=== PATIENT | female | born 1955 | race Caucasian/White ===

== ENCOUNTER 2023-05-29 19:45 | Emergency (ER) | payer OTHER ==
[2023-05-29] MEDS ORDERED: MORPHINE 2 MG/ML SYR ONE (20:06)
[2023-05-29] MEDS ORDERED: NA CHLORIDE 0.9% 500 ML ONE (20:07)
[2023-05-29] MEDS ORDERED: MORPHINE 4 MG/ML SYR ONE (20:07)
[2023-05-29] MEDS ORDERED: ONDANSETRON 4 MG/2 ML VIAL ONE (20:08)
[2023-05-29 20:12] LABS: Absolute Lymphocytes (CBC) 1.9 K/uL (0.7-4.9); Hematocrit 41.8 % (36.0-45.0); Lymphocytes % 34.9 % (15.3-44.8); MCV 91.9 fL (80-100); RBC Red Blood Cell Count 4.55 M/uL (3.86-4.86)
[2023-05-29 20:29] LABS: Potassium 3.1 mEq/L (3.5-5.1)
[2023-05-29] MEDS ORDERED: POTASSIUM 25 MEQ EFFERV TAB ONE (20:48)
--- NOTE | 2023-05-29 20:55 | RAD REPORT ---
EXAM DESCRIPTION: RAD - Ankle Left 3 View -05/29/2023 8:36 pm CLINICAL HISTORY: Left ankle pain status post injury FINDINGS: Oblique markedly displaced fracture distal diaphysis fibula with overriding fracture fragm ents. Medial malleolar fracture. Medial joint space is widened which may indicate an injury to deltoid ligament
--- NOTE | 2023-05-29 20:56 | RAD REPORT ---
EXAM DESCRIPTION: Concepción Hess Left05/29/2023 8:36 pm CLINICAL HISTORY: Left leg pain status post injury FINDINGS: Oblique markedly displaced fracture distal diaphysis fibula with overriding fracture fragments. Medial malleolar fracture. Medial joint space is widened which may indicate an injury to deltoid ligament Mildly displaced fracture fibular neck
--- NOTE | 2023-05-29 21:06 | ER ---
Nurse's Notes [facility] Name: Julia Mahesh Age: 67 yrs Sex: Female : 1955 Arrival Date: 05/29/2023 Time: 19:45 Bed 3 Private MD: Diagnosis: Bimalleolar fracture of left lower leg;Sprain of ankle;Fall (on) (from) unspecified stairs and steps;Hypokalemia Presentation: 05/29 19:55 Chief complaint: Patient states: i WAS WALKING DOWN THE STAIRS AND I STEEPED WRONG AND kd3 SLIPPED AND MY ANKLE IS BROKEN. Coronavirus screen: Vaccine status:. Ebola Screen: No symptoms or risks identified at this time. Initial Sepsis Screen: Does the patient meet any 2 criteria? No. Patient's initial sepsis screen is negative. Does the patient have a suspected source of infection? No. Patient's initial sepsis screen is negative. Risk Assessment: Do you want to hurt yourself or someone else? Patient reports no desire to harm self or others. Onset of symptoms was May 29, 2023. 19:55 Method Of Arrival: Wheelchair kd3 19:55 Acuity: DUSTIN 2 as6 Triage Assessment: 19:55 General: Appears uncomfortable, Behavior is calm, cooperative. Pain: Complains of pain kd3 in left medial ankle and anterior aspect of left ankle. Musculoskeletal: Bony deformity noted of left medial ankle and anterior aspect of left ankle. Historical: - Allergies: 19:56 PENICILLINS; snw 19:56 Tetanus Vaccines \T\ Toxoid; snw 19:56 Demerol; snw - Immunization history:: Adult Immunizations. - Social history:: Smoking status: unknown. Screenin:35 [facility] ED Fall Risk Assessment (Adult) History of falling in the last 3 months, ll3 including since admission Yes- single mechanical fall (1 pt) Confusion or Disorientation No (0 pts) Intoxicated or Sedated No (0 pts) Impaired Gait Yes (1 pt) Mobility Assist Device Used Yes (1 pt) Altered Elimination No (0 pt) Score/Fall Risk Level 3 or more points = High Risk Oriented to surroundings, Maintained a safe environment, Educated pt \T\ family on fall prevention, incl call for assistance when getting out of bed. Abuse screen: Denies threats or abuse. Denies injuries from another. Nutritional screening: No deficits noted. Tuberculosis screening: No symptoms or risk factors identified. Assessment: 20:15 General: Appears uncomfortable, Behavior is cooperative, anxious. Pain: Complains of ll3 pain in left medial ankle Pain does not radiate. Neuro: Level of Consciousness is awake, alert, obeys commands, Oriented to person, place, time, situation. Respiratory: Respiratory effort is even, unlabored, Respiratory pattern is regular, symmetrical. Derm: Abrasion to left ankle. Musculoskeletal: Bony deformity noted of left medial ankle Swelling present in left medial ankle. Vital Signs: 19:55 BP 176 / 90; Pulse 89; Resp 20; Temp 98.2(O); Pulse Ox 100% on R/A; kd3 21:35 BP 135 / 75; Pulse 60; Resp 16; Pulse Ox 100% on R/A; ll3 [place] Coma Score: 22:17 Eye Response: spontaneous(4). Motor Response: obeys commands(6). Verbal Response: rv oriented(5). Total: 15. ED Course: 19:54 Patient arrived in ED. ja2 19:55 Inserted saline lock: 20 gauge in right antecubital area, using aseptic technique. as6 Blood collected. 19:55 Arm band placed on right wrist. kd3 19:57 Triage completed. kd3 20:05 [place] John [facility]-C [facility]. snw 20:05 Ponce Kimbrough MD is Attending Physician. snw 20:37 Ankle Left 3 View XRAY In Process Unspecified. EDMS 20:37 Tib Fib Left XRAY In Process Unspecified. EDMS 21:36 Patient has correct armband on for positive identification. Bed in low position. Call ll3 light in reach. Side rails up X 1. Adult w/ patient. 22:17 Michele Dutta, JUANCARLOS is Primary Nurse. rv 22:19 No provider procedures requiring assistance completed. IV discontinued, intact, rv bleeding controlled, No redness/swelling at site. Pressure dressing applied. Administered Medications: 20:02 Drug: morphine IVP or IV 5 mg Route: IVP; Infused Over: 4 mins; Site: right antecubital;as6 22:18 Follow up: Response: No adverse reaction rv 20:02 Drug: NS 0.9% IV 500 ml Volume: 500 ml; Route: IV; Rate: 1 bolus; Site: right as6 antecubital; 22:18 Follow up: IV Status: Completed infusion; IV Intake: 500ml rv 20:03 Drug: Ondansetron IVP 4 mg Route: IVP; Site: right antecubital; as6 22:18 Follow up: Response: No adverse reaction rv 20:57 Drug: Potassium PO Effervescent Tablet 50 mEq Route: PO; ll3 22:18 Follow up: Response: No adverse reaction rv 21:32 Drug: HYDROmorphone IM 1 mg Route: IM; Site: right deltoid; ll3 22:18 Follow up: Response: No adverse reaction rv Medication: 21:36 VIS not applicable for this client. ll3 Intake: 22:18 IV: 500ml; Total: 500ml. rv Outcome: 21:06 Discharge ordered by . snw 22:19 Discharged to home via wheelchair, WALKER rv 22:19 Condition: good 22:19 Discharge instructions given to patient, Instructed on discharge instructions, follow up and referral plans. medication usage, WALKER Demonstrated understanding of instructions, follow-up care, medications, Prescriptions given X 1. 22:19 Patient left the ED. rv Signatures: Dispatcher [employer] EDMS Kenya John, GRAPPLE SKIDDER OPERATOR-C GRAPPLE SKIDDER OPERATOR-Csnw Michele Dutta, RN RN rv Suha Michaels Ashby, RN RN as6 Mini Ventura RN RN ll3 Claudia Mauro RN RN kd3 Corrections: (The following items were deleted from the chart) 20:03 19:55 Acuity: DUSTIN 3 kd3 as6
--- NOTE | 2023-05-29 21:06 | EDPHYS ---
Physician Documentation [facility] Name: Julia Aragon Age: 67 yrs Sex: Female : 1955 Arrival Date: 05/29/2023 Time: 19:45 Bed 3 Private MD: ED Physician Ponce Kimbrough HPI: 05/29 19:59 This 67 yrs old Female presents to ER via Wheelchair with complaints of Ankle Injury. snw 19:59 The patient presents with decreased range of motion, a deformity, an injury, pain, that snw is acute. The complaints affect the left ankle. Onset: The symptoms/episode began/occurred suddenly. Context: The problem was sustained at home, resulted from a mis-step by the patient, missed step coming down stairs, The mechanism of injury involved eversion of the affected ankle. The patient is unable to bear weight. Modifying factors: The symptoms are alleviated by nothing, the symptoms are aggravated by movement. The patient has not experienced similar symptoms in the past. The patient has not recently seen a physician, and does not have an established primary care provider, just moved to area. no LOC, isolated injury. Historical: - Allergies: 19:56 PENICILLINS; snw 19:56 Tetanus Vaccines \T\ Toxoid; snw 19:56 Demerol; snw - Immunization history:: Adult Immunizations. - Social history:: Smoking status: unknown. ROS: 19:58 Constitutional: Negative for fever, chills, and weight loss, Eyes: Negative for injury, snw pain, redness, and discharge, ENT: Negative for injury, pain, and discharge, Neck: Negative for injury, pain, and swelling, Cardiovascular: Negative for chest pain, palpitations, and edema, Respiratory: Negative for shortness of breath, cough, wheezing, and pleuritic chest pain, Abdomen/GI: Negative for abdominal pain, nausea, vomiting, diarrhea, and constipation, Back: Negative for injury and pain, : Negative for injury, bleeding, discharge, and swelling, Skin: Negative for injury, rash, and discoloration, Neuro: Negative for headache, weakness, numbness, tingling, and seizure, Psych: Negative for depression, anxiety, suicide ideation, homicidal ideation, and hallucinations. 19:58 MS/extremity: Positive for injury or acute deformity, decreased range of motion, deformity, pain, tenderness, of the left medial ankle. Exam: 19:56 Constitutional: This is a well developed, well nourished patient who is awake, alert, snw and in no acute distress. Head/Face: Normocephalic, atraumatic. Eyes: Pupils equal round and reactive to light, extra-ocular motions intact. Lids and lashes normal. Conjunctiva and sclera are non-icteric and not injected. Cornea within normal limits. Periorbital areas with no swelling, redness, or edema. ENT: Nares patent. No nasal discharge, no septal abnormalities noted. Tympanic membranes are normal and external auditory canals are clear. Oropharynx with no redness, swelling, or masses, exudates, or evidence of obstruction, uvula midline. Mucous membranes moist. Neck: Trachea midline, no thyromegaly or masses palpated, and no cervical lymphadenopathy. Supple, full range of motion without nuchal rigidity, or vertebral point tenderness. No Meningismus. Chest/axilla: Normal chest wall appearance and motion. Nontender with no deformity. No lesions are appreciated. Cardiovascular: Regular rate and rhythm with a normal S1 and S2. No gallops, murmurs, or rubs. Normal PMI, no JVD. No pulse deficits. Respiratory: Lungs have equal breath sounds bilaterally, clear to auscultation and percussion. No rales, rhonchi or wheezes noted. No increased work of breathing, no retractions or nasal flaring. Abdomen/GI: Soft, non-tender, with normal bowel sounds. No distension or tympany. No guarding or rebound. No evidence of tenderness throughout. Back: No spinal tenderness. No costovertebral tenderness. Full range of motion. Neuro: Awake and alert, GCS 15, oriented to person, place, time, and situation. Cranial nerves II-XII grossly intact. Motor strength 5/5 in all extremities. Sensory grossly intact. Cerebellar exam normal. Normal gait. Psych: Awake, alert, with orientation to person, place and time. Behavior, mood, and affect are within normal limits. 19:56 Musculoskeletal/extremity: Extremities: grossly normal except: noted in the left medial ankle: decreased ROM, deformity, ecchymosis, pain, ROM: unable 2nd to deformity, Circulation is intact in all extremities. Sensation intact. Weight bearing: is unable to bear weight. 19:56 Skin: Appearance: normal except for affected area, injury, abrasions to medial left ankle 2nd to fracture. Vital Signs: 19:55 BP 176 / 90; Pulse 89; Resp 20; Temp 98.2(O); Pulse Ox 100% on R/A; kd3 21:35 BP 135 / 75; Pulse 60; Resp 16; Pulse Ox 100% on R/A; ll3 [place] Coma Score: 22:17 Eye Response: spontaneous(4). Motor Response: obeys commands(6). Verbal Response: rv oriented(5). Total: 15. Procedures: 20:00 Reduction: of the left ankle, using traction, manipulation, Immobilized with OCL snw splint, Patient tolerated well. Post reduction film - reduced without pain medication per Dr. Vences at bedside. . MDM: 20:05 Patient medically screened. snw 20:32 Differential diagnosis: fracture, sprain. Data reviewed: vital signs, nurses notes, snw radiologic studies, plain films. I considered the following discharge prescriptions or medication management in the emergency department Medications were administered in the Emergency Department. See MAR. Counseling: I had a detailed discussion with the patient and/or guardian regarding: the historical points, exam findings, and any diagnostic results supporting the discharge/admit diagnosis, the presence of at least one elevated blood pressure reading (>120/80) during this emergency department visit, lab results, radiology results, the need for outpatient follow up, for definitive care, to return to the emergency department if symptoms worsen or persist or if there are any questions or concerns that arise at home. Response to treatment: the patient's symptoms have markedly improved after treatment. Special discussion: I have referred the patient to see his PCP for further evaluation of high blood pressure. Based on the history and exam findings, there is no indication for further emergent testing or inpatient evaluation. I discussed with the patient/guardian the need to see the orthopedic surgeon for further evaluation of the symptoms. 05/29 19:56 Order name: CBC with Diff; Complete Time: 20:20 snw 05/29 19:56 Order name: Chem 7; Complete Time: 20:30 snw 05/29 20:11 Order name: Ankle Left 3 View XRAY; Complete Time: 21:03 ll3 05/29 20:11 Order name: Tib Fib Left XRAY; Complete Time: 21:03 ll3 05/29 19:56 Order name: EKG; Complete Time: 19:56 snw 05/29 19:56 Order name: Posterior Leg Splint: with stirrup; Complete Time: 20:20 snw 05/29 19:56 Order name: EKG - Nurse/Tech; Complete Time: 20:40 snw 05/29 20:00 Order name: Ice pack; Complete Time: 20:20 snw 05/29 20:51 Order name: Misc. Order: Walker; Complete Time: 21:04 snw EC:40 Rate is 55 beats/min. Rhythm is regular. QRS [place] is Normal. DE interval is normal. QRS snw interval is prolonged. Clinical impression: NSR w/ Non-specific ST/T Changes and Sinus bradycardia. Administered Medications: 20:02 Drug: morphine IVP or IV 5 mg Route: IVP; Infused Over: 4 mins; Site: right antecubital;as6 22:18 Follow up: Response: No adverse reaction rv 20:02 Drug: NS 0.9% IV 500 ml Volume: 500 ml; Route: IV; Rate: 1 bolus; Site: right as6 antecubital; 22:18 Follow up: IV Status: Completed infusion; IV Intake: 500ml rv 20:03 Drug: Ondansetron IVP 4 mg Route: IVP; Site: right antecubital; as6 22:18 Follow up: Response: No adverse reaction rv 20:57 Drug: Potassium PO Effervescent Tablet 50 mEq Route: PO; ll3 22:18 Follow up: Response: No adverse reaction rv 21:32 Drug: HYDROmorphone IM 1 mg Route: IM; Site: right deltoid; ll3 22:18 Follow up: Response: No adverse reaction rv Disposition: 05/30 13:11 Co-signature as Attending Physician, Ponce Kimbrough MD I agree with the assessment and kdr plan of care. Disposition Summary: 05/29/23 21:06 Discharge Ordered Location: Home snw Condition: Stable snw Diagnosis - Bimalleolar fracture of left lower leg snw - Sprain of ankle snw - Fall (on) (from) unspecified stairs and steps snw - Hypokalemia snw Followup: snw - With: Emergency Department - When: As needed - Reason: Worsening of condition Followup: snw - With: Private Physician - When: 1 - 2 days - Reason: Recheck today's complaints, Continuance of care, Re-evaluation by your physician Discharge Instructions: - Discharge Summary Sheet snw - Ankle Fracture snw - Ankle Sprain snw - Cast or Splint Care, Adult snw - Potassium Content of Foods snw - Fall Prevention in the Home, Adult snw - RICE Therapy for Routine Care of Injuries snw - How to Use a Walker snw - How to Use Cold Therapy snw - Hypokalemia snw Forms: - Medication Reconciliation Form snw - Thank You Letter snw - Antibiotic Education snw - Prescription Opioid Use snw - [email or web address] snw Prescriptions: - acetaminophen-codeine 300-30 mg Oral tablet - take 2 tablet by ORAL route every 4 to 6 hours as needed for pain; 20 tablet; snw Refills: 0, Product Selection Permitted Signatures: Dispatcher [employer] EDMS Ponce Kimbrough MD MD kdr Waters, Shelly, QUALITY CONTROL CHECKER-C QUALITY CONTROL CHECKER-Csnw Robinson Salazar RN RN as6 Mini Ventura RN RN ll3 Claudia Mauro RN RN kd3 Michele Dutta RN rv Corrections: (The following items were deleted from the chart) 05/29 20:54 19:56 Tib Fib Left+RAD.RAD.BRZ ordered. EDMS EDMS
[2023-05-29] MEDS ORDERED: HYDROMORPHONE HCL 1 MG/ML INJ ONE (21:33)
[2023-05-29 22:28] VITALS: TEMP 98.2; O2SAT 100
[2023-05-29 22:30] VITALS: BP 135/75
--- NOTE | 2023-05-29 22:33 | P.HP ---
Patient History Date of Service: 05/29/23 Physical Examination - Vital Signs Temperature: 98.2 F Blood Pressure: 135/75 Pulse: 60 Respirations: 16 - Studies Laboratory Data (last 24 hrs) 05/29/23 20:00: Sodium 139, Potassium 3.1 L, BUN 11, Creatinine 1.22 H, Glucose 98 05/29/23 20:00: WBC 5.40, Hgb 14.1, Hct 41.8, Plt Count 281 Assessment and Plan - Advance Directives Does patient have a Living Will: No Does patient have a Durable POA for Healthcare: No
--- NOTE | 2023-05-30 19:30 | EKG ---
Test Date: 2023-05-29 Test Time: 20:33:57 Mechanical Fitter: RV MEASUREMENT RESULTS: Intervals: Rate: 55 WI: 168 QRSD: 112 QT: 436 QTc: 417 [place]: P: 59 WI: 168 QRS: -18 T: 52 INTERPRETIVE STATEMENTS: Sinus bradycardia Incomplete right bundle branch block Borderline ECG No previous ECG available for comparison Electronically Signed On 05-30-23 19:28:52 CDT by Layton Pace
== END 2023-05-29 22:19 | disposition home or self-care (01) ==
LOC: ER 19:45
DX: S82.842A Displaced bimalleolar fracture of left lower leg, initial encounter for closed fracture (principal); S93.402A Sprain of unspecified ligament of left ankle, initial encounter; E87.6 Hypokalemia; W10.9XXA Fall (on) (from) unspecified stairs and steps, initial encounter; Z88.0 Allergy status to penicillin; Z88.5 Allergy status to narcotic agent; Z88.7 Allergy status to serum and vaccine
CPT/HCPCS: 96361; 93005; 85025; 80048; 36415; 73590; 73610; 96375; 96372; 96374; 99284; 27810; J2270; J1170; J2405; J7040